=== PATIENT | female | born 1950 | race Caucasian/White ===

== ENCOUNTER 2018-07-05 18:37 | Emergency (ER) | payer SELFPAY ==
[~2018-07-05] VITALS: Ht 157.5 cm; Wt 58.8 kg
[2018-07-05 19:16] VITALS: BP 164/87
== END 2018-07-05 21:02 | disposition left against medical advice (07) | DRG 951 ==
LOC: ED 18:37 → LWOBS 21:02
DX: Z91.19 Patient's noncompliance with other medical treatment and regimen (principal)

== ENCOUNTER → 2018-07-25 | Outpatient (REF) | END | disposition home or self-care (01) | DRG 696 | LOC: LAB 09:02 | PROVIDERS: ATTEND Nurse Practitioner Family | DX: R32 Unspecified urinary incontinence (principal); I10 Essential (primary) hypertension; E11.9 Type 2 diabetes mellitus without complications ==

== ENCOUNTER 2019-02-25 09:43 | Emergency (ER) | payer MEDICARE ==
[~2019-02-25] VITALS: Ht 157.5 cm; Wt 62.0 kg
[2019-02-25 10:15] LABS: GFR > 60 ML/MIN (>=60 (CALC)); GFR FOR AFR.AMER. > 60 ML/MIN (>=60 (CALC))
[2019-02-25 10:21] LABS: HEMATOCRIT 44.7 % (37.0-47.0); HEMOGLOBIN 14.8 g/dl (12.0-16.0); IMMATURE GRANULOCYTES 0.3 % (0.0-5.0); MEAN CORPUSCULAR HGB 29.1 pG CALC (26.0-32.0); MEAN CORPUSCULAR HGB CONC 33.1 g/L CALC (32.0-36.0); NEUT# 5.9 thou/uL (2.00-7.15); RED BLOOD COUNT 5.08 mill/uL (4.20-5.60)
[2019-02-25 10:34] LABS: ETHYL ALCOHOL 0 mg/dl (0-30); LIPASE 116 u/l (23-300)
[2019-02-25 10:35] LABS: ALKALINE PHOSPHATASE 105 u/l (38-126); ANION GAP 13 (6-22 (CALC)); BILIRUBIN, TOTAL 0.9 mg/dL (0.0-1.4); BUN 17 mg/dL (8-23); BUN/CREATININE RATIO 20 (12-20 (CALC)); CARBON DIOXIDE 23 mmol/l (22-30); CHLORIDE 107 mmol/l (95-108); CREATININE 0.8 mg/dL (0.5-1.0); GFR > 60 ML/MIN (>=60 (CALC)); GFR FOR AFR.AMER. > 60 ML/MIN (>=60 (CALC)); POTASSIUM 3.8 mmol/l (3.5-5.1); SGOT/AST 20 u/l (9-36); SODIUM 139 mmol/l (137-146); TOTAL PROTEIN 6.9 g/dL (6.3-8.2)
[2019-02-25 10:55] LABS: ACT PARTIAL THROMBO TIME 25.8 SECONDS (20.0-32.5)
[2019-02-25] MEDS ORDERED: DONEPEZIL5 MG PO (11:41)
[2019-02-25] MEDS ORDERED: LISINOP/HCTZ1 TA1 PO (11:42)
[2019-02-25] MEDS ORDERED: METFORMIN HCL500 M1 PO (11:42)
[2019-02-25 12:00] VITALS: BP 179/85
[2019-02-25 12:03] LABS: URINE BILIRUBIN - DIPSTICK NEGATIVE (NEGATIVE); URINE BLOOD DIPSTICK NEGATIVE (NEGATIVE); URINE COLOR YELLOW; URINE GLUCOSE - DIPSTICK NEGATIVE (NEGATIVE); URINE KETONE 15 mg/dL (NEGATIVE); URINE LEUK ESTERASE NEGATIVE (NEGATIVE); URINE PH 5.5 (4.5-8.0); URINE PROTEIN - DIPSTICK NEGATIVE (NEG-TRACE)
[2019-02-25 12:11] LABS: URINE BACTERIA MANY hpf; URINE NITRITE - DIPSTICK POSITIVE (Negative); URINE SQUAMOUS EPITHELIAL CELL FEW EPI/hpf (0-FEW)
[2019-02-25 12:12] LABS: BARBITURATES NEGATIVE (NEGATIVE); COCAINE NEGATIVE (NEGATIVE); METHADONE NEGATIVE (NEGATIVE); TETRAHYDROCANNABIONOL NEGATIVE (NEGATIVE); TRICYLIC ANTIDEPRESSANTS NEGATIVE (NEGATIVE)
[2019-02-25 12:13] LABS: OXCYCODONE NEGATIVE (NEGATIVE)
== END 2019-02-25 12:00 | disposition short-term general hospital (02) ==
LOC: ED 09:43
DX: F17.200 Nicotine dependence, unspecified, uncomplicated (principal); I20.0 Unstable angina; G45.9 Transient cerebral ischemic attack, unspecified; E11.9 Type 2 diabetes mellitus without complications; I10 Essential (primary) hypertension; I24.9 Acute ischemic heart disease, unspecified; R82.71 Bacteriuria
CPT/HCPCS: Q9967

== ENCOUNTER 2019-05-21 13:16 | Emergency (ER) | payer MEDICARE ==
[~2019-05-21] VITALS: Ht 157.5 cm; Wt 59.1 kg
[~2019-05-21 13:16] MED LIST: DONEPEZIL5 MG PO; LISINOP/HCTZ1 TA1 PO; METFORMIN HCL500 M1 PO
[2019-05-21 14:14] LABS: HEMATOCRIT 43.1 % (37.0-47.0); HEMOGLOBIN 14.3 g/dl (12.0-16.0); IMMATURE GRANULOCYTES 0.7 % (0.0-5.0); MEAN CELL VOLUME 89.2 fL CALC (80.0-100.0); MEAN CORPUSCULAR HGB 29.6 pG CALC (26.0-32.0); MEAN CORPUSCULAR HGB CONC 33.2 g/L CALC (32.0-36.0); NEUT# 6.65 thou/uL (2.00-7.15); RED BLOOD COUNT 4.83 mill/uL (4.20-5.60); RED CELL DISTRI WIDTH 13.1 % (11.5-15.5)
[2019-05-21 14:25] LABS: ANION GAP 13 (6-22 (CALC)); BUN 16 mg/dL (8-23); BUN/CREATININE RATIO 19 (12-20 (CALC)); CARBON DIOXIDE 26 mmol/l (22-30); CHLORIDE 104 mmol/l (95-108); CREATININE 0.8 mg/dL (0.5-1.0); GFR > 60 ML/MIN (>=60 (CALC)); GFR FOR AFR.AMER. > 60 ML/MIN (>=60 (CALC)); POTASSIUM 4.2 mmol/l (3.5-5.1); SODIUM 139 mmol/l (137-146)
[2019-05-21 16:36] LABS: URINE BILIRUBIN - DIPSTICK NEGATIVE (NEGATIVE); URINE BLOOD DIPSTICK NEGATIVE (NEGATIVE); URINE COLOR YELLOW; URINE GLUCOSE - DIPSTICK NEGATIVE (NEGATIVE); URINE KETONE NEGATIVE (NEGATIVE); URINE LEUK ESTERASE NEGATIVE (NEGATIVE); URINE PROTEIN - DIPSTICK 30 mg/dL (NEG-TRACE); URINE SPECIFIC GRAVITY 1.025; URINE UROBILINOGEN - DIPSTICK 0.2 E.U./dL (0.2)
[2019-05-21 16:38] LABS: URINE NITRITE - DIPSTICK POSITIVE (Negative)
[2019-05-21 16:48] LABS: URINE BACTERIA MANY hpf; URINE RBC 0-2 RBC/hpf (0-5); URINE SQUAMOUS EPITHELIAL CELL FEW EPI/hpf (0-FEW); URINE WBC 0-2 WBC/hpf (0-5)
[2019-05-21 19:20] VITALS: BP 158/76
== END 2019-05-21 19:30 ==
LOC: ED 13:16
PROVIDERS: Family Medicine
DX: S72.142A Displaced intertrochanteric fracture of left femur, initial encounter for closed fracture (principal); E11.9 Type 2 diabetes mellitus without complications; I10 Essential (primary) hypertension; F17.200 Nicotine dependence, unspecified, uncomplicated; W01.0XXA Fall on same level from slipping, tripping and stumbling without subsequent striking against object, initial encounter; Z79.84 Long term (current) use of oral hypoglycemic drugs; R94.31 Abnormal electrocardiogram [ECG] [EKG]